=== PATIENT | male | born 1950 | race Hispanic/Latino ===

== ENCOUNTER → 2021-08-17 | Outpatient (CLI) | payer OTHER | END | disposition home or self-care (01) | LOC: RAH 13:34 | PROVIDERS: ATTEND Internal Medicine | DX: I08.3 Combined rheumatic disorders of mitral, aortic and tricuspid valves (principal); I48.0 Paroxysmal atrial fibrillation; I11.9 Hypertensive heart disease without heart failure; E11.9 Type 2 diabetes mellitus without complications; E78.5 Hyperlipidemia, unspecified; E66.9 Obesity, unspecified | CPT/HCPCS: 93306 ==

== ENCOUNTER → 2022-09-21 | Outpatient (CLI) | payer OTHER | END | disposition home or self-care (01) | LOC: SHCH 13:29 | PROVIDERS: ATTEND Student in an Organized Health Care Education/Training Program | DX: I35.8 Other nonrheumatic aortic valve disorders (principal); I51.7 Cardiomegaly | CPT/HCPCS: 93306 ==

== ENCOUNTER → 2022-09-25 | Outpatient (CLI) | payer OTHER ==
[~2022-09-25] MED LIST: REGADENOSON 0.4 MG/5 ML PF SYG IVP SCH
== END | disposition home or self-care (01) ==
LOC: SHCH 07:52
PROVIDERS: ATTEND Student in an Organized Health Care Education/Training Program
DX: R06.02 Shortness of breath (principal); I25.10 Atherosclerotic heart disease of native coronary artery without angina pectoris
CPT/HCPCS: 78452; 96374; 93017; J2785; A9500 ×2

== ENCOUNTER → 2023-10-09 | Outpatient (CLI) | payer OTHER | END | disposition home or self-care (01) | LOC: SHCH 12:08 | PROVIDERS: ATTEND Student in an Organized Health Care Education/Training Program | DX: R01.1 Cardiac murmur, unspecified (principal) | CPT/HCPCS: 93306 ==

== ENCOUNTER 2024-04-16 06:33 | Day surgery (SDC) | payer OTHER ==
[2024-04-14 12:48] LABS: INR 1.16 (0.85-1.15); POTASSIUM 3.8 mmol/L (3.5-5.1); PROTHROMBIN TIME 12.4 SEC (9.6-11.6)
[2024-04-14 12:49] LABS: PARTIAL THROMBOPLASTIN TIME 29.3 SEC (26.3-35.5)
[2024-04-14 12:57] LABS: B-TYPE NATRIURETIC PEPTIDE 184 pg/mL (0-100)
[2024-04-14 13:01] LABS: BASOPHILS # (AUTO) 0.02 K/uL (0.00-0.20); BASOPHILS % (AUTO) 0.6 % (0.0-5.0); EOSINOPHILS # (AUTO) 0.13 K/uL (0.00-0.70); HEMATOCRIT 33.8 % (42-54); LYMPHOCYTES # (AUTO) 0.6 K/uL (1.0-4.8); LYMPHOCYTES % (AUTO) 18.8 % (21.0-51.0); MEAN CORPUSCULAR HEMOGLOBIN 28.8 pg (27.0-33.0); MEAN CORPUSCULAR HGB CONC 32.5 g/dL (32.0-36.0); MEAN CORPUSCULAR VOLUME 88.5 fL (79-99); MONOCYTES # (AUTO) 0.4 K/uL (0.1-1.0); MONOCYTES % (AUTO) 10.8 % (3.0-13.0); NEUTROPHILS # (AUTO) 2.1 K/uL (1.8-7.7); NEUTROPHILS % (AUTO) 65.8 % (40.0-77.0); PLATELET COUNT (AUTO) 124 K/uL (130-400); RED BLOOD CELL COUNT(AUTO) 3.82 MIL/uL (4.50-6.20); RED CELL DISTRIBUTION WIDTH 16.9 % (11.0-15.5); WHITE BLOOD COUNT (AUTO) 3.2 K/uL (4.8-10.8)
[2024-04-14 13:27] VITALS: BP 98/57; PULSE 80; RESP 18; TEMP 97.4
[~2024-04-16] VITALS: Ht 165.1 cm; Wt 94.8 kg
[2024-04-16] VITALS (14 sets, daily range): BP systolic 97–121; BP diastolic 47–77; PULSE 58–68; RESP 14–16; TEMP 97.5–98
[~2024-04-16 06:33] MED LIST changes: +0.9% NACL 500ML IV.SOLN 500 ML IV SCH; +ACET-2079 PO; +APIX5TAB PO; +CHOL200059 PO; +FINA5TAB41 PO; +HC2530O TP; +IBUP200C5 PO; +LACT10SO5 PO; +LINA72CA PO; +MAGN400C PO; +METF-446 PO; +OMEP40CA21 PO; +PHARMACY COMMUNICATION MISC SCH; +PROP20TA7 PO; -REGADENOSON 0.4 MG/5 ML PF SYG IVP SCH; +SPIR25TA6 PO; +SUCR1TAB2 PO; +TAMS-1 PO; +TIRZ7.5P SQ
[2024-04-16] MEDS ORDERED: HEParin 10,000 UNIT/10ML (1,000 UNIT/ML) VIAL ONE (07:09)
[2024-04-16] MEDS ORDERED: HEParin-NS 1,000 UNIT/500 ML 1,000 ML IV ONE (07:09)
[2024-04-16] MEDS ORDERED: VERAPAMIL HCL 2.5 MG/ML VIAL ONE (07:09)
[2024-04-16] MEDS ORDERED: LIDOCAINE HCL 400MG/20ML VIAL ONE (07:09)
[2024-04-16] MEDS ORDERED: IOHEXOL 350 MG/ML 100ML INFUS..BTL IV ONE (07:09)
[2024-04-16] MEDS ORDERED: NITROGLYCERIN 50MG VIAL ONE (07:10)
[2024-04-16] MEDS: 0.9%NACL 1000ML 1,000 ML IV ONE (07:24)
[2024-04-16] MEDS ORDERED: MIDAZOLAM HCL 1 MG/ML 2ML VIAL ONE (07:24)
[2024-04-16] MEDS ORDERED: FENTanyl CITRate PF 50 MCG/1 ML 2ML VIAL ONE (07:24)
[2024-04-16] MEDS: 0.9%NACL 1000ML 1,000 ML IV SCH (08:00)
[2024-04-16] MEDS ORDERED: DEXTROSE 50%-WATER 50 ML DISP.SYRIN IV PRN (08:30)
[2024-04-16] MEDS ORDERED: GLUCAGON 1MG KIT 1 MG ML IM PRN (08:30)
== END 2024-04-16 12:00 | disposition home or self-care (01) ==
LOC: DAH 06:33
PROVIDERS: ATTEND Student in an Organized Health Care Education/Training Program
DX: R07.89 Other chest pain (principal); I25.118 Atherosclerotic heart disease of native coronary artery with other forms of angina pectoris; I10 Essential (primary) hypertension; E78.5 Hyperlipidemia, unspecified; K21.9 Gastro-esophageal reflux disease without esophagitis; E11.9 Type 2 diabetes mellitus without complications; K59.00 Constipation, unspecified; I48.21 Permanent atrial fibrillation; R01.1 Cardiac murmur, unspecified; I47.29 Other ventricular tachycardia; G47.33 Obstructive sleep apnea (adult) (pediatric); E66.01 Morbid (severe) obesity due to excess calories; Z88.6 Allergy status to analgesic agent; Z68.36 Body mass index [BMI] 36.0-36.9, adult; Z79.01 Long term (current) use of anticoagulants; Z79.82 Long term (current) use of aspirin; Z79.899 Other long term (current) drug therapy; Z90.49 Acquired absence of other specified parts of digestive tract; Z98.890 Other specified postprocedural states
CPT/HCPCS: 80048; 83880; 85025; 85610; 85730; 36415; 71045; 93005; 93458; 82948 ×2; C1769 ×2; C1894; A4649; J3010; J3490 ×3; J7030; J1644 ×2; J2250; Q9967; A4215; A4222; A4221; A4663; A4216; A4606; Q9965; A4223 ×3; 96360; 96361; 99156; 99157

== ENCOUNTER → 2024-09-08 | Outpatient (CLI) | payer OTHER ==
[~2024-09-08] MED LIST changes: -0.9% NACL 500ML IV.SOLN 500 ML IV SCH; +LACT-441 PO; -LACT10SO5 PO; -PHARMACY COMMUNICATION MISC SCH
--- NOTE | 2024-09-08 16:18 | HMCSR ---
APPROVED REPORT Bilateral Lower Extremity Venous Study for DVT., Venous Competence. Indications i87.1,i87.2 Vein Imaging CFV (R): Normal flow, augmentation and compression. No evidence of DVT. 15.2mm 2078ms of reflux. SFJ (R): Normal flow, augmentation and compression. No evidence of DVT. FEM (R): Normal flow, augmentation and compression. No evidence of DVT. Mid 622ms, Distal 1822ms of reflux. POP (R): Normal flow, augmentation and compression. No evidence of DVT. DFV (R): Normal flow, augmentation and compression. No evidence of DVT. PTV (R): Normal flow, augmentation and compression. No evidence of DVT. Peroneals (R): Normal flow, augmentation and compression. No evidence of DVT. CFV (L): Normal flow, augmentation and compression. No evidence of DVT. 12.7mm 628ms of reflux. SFJ (L): Normal flow, augmentation and compression. No evidence of DVT. FEM (L): Normal flow, augmentation and compression. No evidence of DVT. Distal 3500ms of reflux. POP (L): Normal flow, augmentation and compression. No evidence of DVT. DFV (L): Normal flow, augmentation and compression. No evidence of DVT. PTV (L): Normal flow, augmentation and compression. No evidence of DVT. Peroneals (L): Normal flow, augmentation and compression. No evidence of DVT. Technologist Impression Deep veins of the bilateral lower extremities appear patent and compressible without thrombus. Deep venous reflux noted in the RCFV, RSFV and LSFV. Superficial venous insufficiency noted in the RGSV, LGSV and LSSV. RGSV junction 6.6mm 0.0ms thigh 2.7mm 0.0ms knee 2.7mm 3883ms calf 2.2mm 3483ms RSSV prox 1.7mm 0.0ms mid 2.1mm 0.0ms LGSV prox 6.2mm 0.0ms thigh 3.2mm 0.0ms knee 3.3mm 1139ms calf 2.7mm 4178ms LSSV prox 2.6mm 0.0ms mid 3.5mm 3800ms (cluster of veins) Conclusion Deep veins of the bilateral lower extremities appear patent and compressible without thrombus. Deep venous reflux noted in the RCFV, RSFV and LSFV. Superficial venous insufficiency noted in the RGSV, LGSV and LSSV. Conclusion Deep veins of the bilateral lower extremities appear patent and compressible without thrombus. Deep venous reflux noted in the RCFV, RSFV and LSFV. Superficial venous insufficiency noted in the RGSV, LGSV and LSSV.
--- NOTE | 2024-09-08 16:18 | HMCSR ---
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 (R) 61.0cm/sec, Triphasic, Prof Fem Art. (L) 68.2cm/sec, Triphasic, Fem Art Prox. (R) 72.7cm/sec, Triphasic, Fem Art Prox. (L) 79.0cm/sec, Triphasic, Fem Art Mid. (R) 75.4cm/sec, Triphasic, Fem Art Mid. (L) 88.8cm/sec, Triphasic, Fem Art Dist (R) 82.5cm/sec, Triphasic, Fem Art Dist. (L) 91.5cm/sec, Triphasic, Pop Art(AK) (R) 76.3cm/sec, Triphasic, Pop Art (AK) (L) 87.0cm/sec, Triphasic, Pop Art (Fossa)(R) 52.2cm/sec, Triphasic, Pop Art (Fossa) (L) 52.2cm/sec, Triphasic, Pop Art(BK) (R) 101.4cm/sec, Triphasic, Pop Art (BK) (L) 77.2cm/sec, Triphasic, EAR FLAP BINDER Prox. (R) 69.5cm/sec, Triphasic, EAR FLAP BINDER Prox. (L) 53.8cm/sec, Biphasic, EAR FLAP BINDER Mid. (R) 101.9cm/sec, Triphasic, EAR FLAP BINDER Mid. (L) 44.9cm/sec, Biphasic, EAR FLAP BINDER Dist. (R) 99.6cm/sec, Triphasic, EAR FLAP BINDER Dist. (L) 54.7cm/sec, Biphasic, Per Art Prox. (R) 50.6cm/sec, Triphasic, Per Art Prox. (L) 46.2cm/sec, Triphasic, Per Art Mid. (R) 118.7cm/sec, Triphasic, Per Art Mid. (L) 118.7cm/sec, Triphasic, Per Art Dist. (R) 42.4cm/sec, Triphasic, Per Art Dist. (L) 118.7cm/sec, Triphasic, LUIS ENRIQUE Prox. (R) 115.2cm/sec, Triphasic, LUIS ENRIQUE Prox. (L) 93.9cm/sec, Triphasic, LUIS ENRIQUE Mid. (R) 44.9cm/sec, Triphasic LUIS ENRIQUE Mid. (L) cm/sec, Occluded, LUIS ENRIQUE Dist. (R) 65.3cm/sec, Triphasic, LUIS ENRIQUE Dist. (L) 68.2cm/sec, Triphasic, Recollateralized Technologist Impression The left mid LUIS ENRIQUE appears occluded with recollateralized flow into the distal. Conclusion The left mid LUIS ENRIQUE appears occluded with recollateralized flow into the distal. Conclusion The left mid LUIS ENRIQUE appears occluded with recollateralized flow into the distal.
== END | disposition home or self-care (01) ==
LOC: SHCH 12:53
PROVIDERS: ATTEND Student in an Organized Health Care Education/Training Program
DX: I87.2 Venous insufficiency (chronic) (peripheral) (principal); I87.1 Compression of vein; I70.213 Atherosclerosis of native arteries of extremities with intermittent claudication, bilateral legs; R60.9 Edema, unspecified
CPT/HCPCS: 93925; 93970

== ENCOUNTER 2025-06-28 05:55 | Day surgery (SDC) | payer OTHER ==
[2025-06-25 11:56] LABS: IMMATURE GRANULOCYTE ABSOLUTE 0.01 K/uL (0-1); NUCLEATED RED BLOOD CELLS 0.0 % (0.0-0.19); PLATELET COUNT (AUTO) 112 K/uL (130-400); RED BLOOD CELL COUNT(AUTO) 4.54 MIL/uL (4.50-6.20); RED CELL DISTRIBUTION WIDTH 17.4 % (11.0-15.5); WHITE BLOOD COUNT (AUTO) 4.2 K/uL (4.8-10.8)
[2025-06-25 12:01] LABS: CREATININE 1.0 mg/dL (0.5-1.3); GLOMERULAR FILTR. RATE CALC 78.0 mL/min (>90); GLUCOSE,RANDOM 122.0 mg/dL (70-105); SODIUM SERUM 140.0 mmol/L (136-145); UREA NITROGEN, BLOOD 22.0 mg/dL (7-18)
[2025-06-25 12:03] LABS: INR 1.15 (0.85-1.15)
[2025-06-25 12:26] VITALS: BP 128/64; PULSE 78; RESP 18; TEMP 98.1
[~2025-06-28] VITALS: Ht 165.1 cm; Wt 92.8 kg
[2025-06-28] VITALS (8 sets, daily range): BP systolic 115–142; BP diastolic 60–75; PULSE 74–88; RESP 12–20; TEMP 97.4–98
[~2025-06-28 05:55] MED LIST changes: -APIX5TAB PO; +ASPI-1005 PO; -CHOL200059 PO; +FERS325 PO; +FURO40TA5 PO; -HC2530O TP; -IBUP200C5 PO; -LACT-441 PO; -LINA72CA PO; +OMEP20CA12 PO; -OMEP40CA21 PO; -TAMS-1 PO; +TAMS-55 PO; +TIRZ12.5 SQ; -TIRZ7.5P SQ; +VITAMIN B6 PO
--- NOTE | 2025-06-28 06:30 | NUR ---
SKIN INTEGRITY: PATIENT STATED WAS SEEN IN ER ON 06/27/25 RELATED TO SKIN TEAR TO RIGHT LOWER EXTREMITY. PT DOES HAVE A DRESSING TO RIGHT LOWER EXTREMITY THAT IS DRY/INTACT WITH NO BLEEDING PRESENT.
[2025-06-28] MEDS: 0.9%NACL 1000ML 1,000 ML IV SCH (06:39)
[2025-06-28] MEDS ORDERED: LIDOCAINE HCL 400MG/20ML VIAL ONE (07:13)
[2025-06-28] MEDS ORDERED: IODIXANOL 320 MG/ML 100 ML VIAL ONE (07:13)
[2025-06-28] MEDS ORDERED: NITROGLYCERIN 50MG VIAL ONE (07:14)
[2025-06-28] MEDS ORDERED: HEParin-NS 1,000 UNIT/500 ML 1,000 ML IV ONE (07:14)
[2025-06-28] MEDS ORDERED: MIDAZOLAM HCL 1 MG/ML 2ML VIAL ONE ×2 (07:35→10:17)
[2025-06-28] MEDS ORDERED: ASPIRIN 81MG CHEW TAB ONE (08:24)
[2025-06-28] MEDS ORDERED: GLUCAGON 1MG KIT 1 MG ML IM PRN (08:30)
[2025-06-28] MEDS ORDERED: DEXTROSE 50%-WATER 50 ML DISP.SYRIN IV PRN (08:30)
--- NOTE | 2025-06-28 08:36 | PRN ---
Procedure Note INDICATION FOR PROCEDURE: [] Iliac vein compression Chronic venous stasis Chronic venous insufficiency Lymphedema secondary to chronic venous insufficiency PROCEDURE: [] Conscious sedation Bilateral common femoral vein sheath placements nine Indonesian Bilateral common femoral venograms Intravascular ultrasound of IVC, bilateral common iliac external iliac and common femoral veins Primary stent placement to right common and external iliac vein end-to-side 14 mm x 100 mm Medtronic venous self expanding stent Vascade closure systems for closure of bilateral venous access sites DATE OF PROCEDURE: 06/28/2025 PAINTER ORDNANCE: Julian [email or web address] PROCEDURE NOTE: [] Patient was brought to catheterization suite and prepped and draped in sterile fashion. An IV was started if not already in place in both groins were exposed for venous access. 2% lidocaine was used for local anesthesia and then a micropuncture kit was used to gain access and was free flow by dressing modified Seldinger technique was utilized to place a nine Indonesian sheath into the left common femoral vein. Next a venogram was performed. Next a Glidewire was placed in the IVC and an intravascular ultrasound interrogation was performed. IVUS catheter was removed and an Omni flush catheter was then placed into the IVC and used to direct a 0.035 in glidewire to the right common femoral vein. Omni flush was then advanced wire was pulled and then a venogram was performed. Next wire was placed back up and over into the right common femoral vein omni flush catheter was removed and then an IVUS catheter was used to interrogate the right iliac system. Patient was noted to have minimal compression on the left common iliac vein with greater than 60% compression of the right external iliac vein therefore we then used 2% lidocaine for local anesthesia on the right gained access on the right and placed a nine Indonesian sheath into the right common femoral vein. Next a venogram was performed once more and then Glidewire was kept in place IVUS catheter was then used to interrogate and locate landmarks as to where stent was to be landed. Next a 14 mm x 100 mm Medtronic venous self expanding stent was then placed into the distal right common iliac vein extending the entirety of the right external iliac vein and deployed. Follow up intravascular ultrasound interrogation revealed excellent stent apposition with no residual compression noted. At end indicates Vascade closure system for used to remove both nine Indonesian sheath and no complications occurred. FINDINGS: [] 26% compression left common iliac vein and 14% compression left external iliac vein 60% compression right external iliac vein Significant evidence of portal hypertension with mean venous pressure is at 22 mm Hg at the common femoral vein site IMPRESSION: [] Critical compression right external iliac vein Portal hypertension PLAN: [] Successful primary stent placement to right common and external iliac vein with the use of a 14 mm x 100 mm Medtronic venous self expanding stent JULIAN TRAN MD Jun 28, 2025 08:36
== END 2025-06-28 10:55 | disposition home or self-care (01) ==
LOC: DAH 05:55
PROVIDERS: ATTEND Internal Medicine Cardiovascular Disease
DX: I87.1 Compression of vein (principal); I87.2 Venous insufficiency (chronic) (peripheral); I87.8 Other specified disorders of veins; I10 Essential (primary) hypertension; K21.9 Gastro-esophageal reflux disease without esophagitis; E11.9 Type 2 diabetes mellitus without complications; N40.0 Benign prostatic hyperplasia without lower urinary tract symptoms; I48.91 Unspecified atrial fibrillation; G47.33 Obstructive sleep apnea (adult) (pediatric); E78.5 Hyperlipidemia, unspecified; E66.01 Morbid (severe) obesity due to excess calories; Z68.25 Body mass index [BMI] 25.0-25.9, adult; Z86.2 Personal history of diseases of the blood and blood-forming organs and certain disorders involving the immune mechanism; Z80.9 Family history of malignant neoplasm, unspecified; Z88.1 Allergy status to other antibiotic agents; Z79.899 Other long term (current) drug therapy; Z98.890 Other specified postprocedural states
CPT/HCPCS: 80048; 85025; 85610; 85730; 36415; 37238; 36012; 37252; 37253 ×5; 99156; 99157 ×2; 82948; C1876; C1769; C1894 ×3; C1760 ×2; C1753; J1200; J3010; J3490 ×2; J7030; J2250 ×2; J1644; Q9967; A4215; A4222; A4221; A4663; A4216; A4606; A4223 ×3; 75822